=== PATIENT | male | born 1970 | race Caucasian/White ===

== ENCOUNTER 2016-09-03 19:44 | Emergency (ER) | payer SELFPAY ==
[2016-09-03 20:54] LABS: BASOPHIL 0.5 % (0-2); EOSINOPHIL 1.4 % (0-5); HCT 44.2 % (42.0-52.0); HGB 15.9 g/dl (13.2-18.0); MCH 31.9 pg (25.0-31.0); MCV 88.6 fL (78.0-100.0); MONOCYTE 6.3 % (0-12); MPV 10.1 fL (6.0-9.5); NEUTROPHIL 52.8 % (41-80); PLT 246 K/uL (150-400); RBC 4.99 M/uL (4.70-6.00); RDW 12.3 % (11.5-14.0); WBC 10.2 K/uL (4.0-10.5)
[2016-09-03 21:00] LABS: BILIRUBIN NEGATIVE (NEGATIVE); BLOOD NEGATIVE Ery/uL (NEGATIVE); CLARITY CLEAR (CLEAR); COLOR YELLOW (YELLOW); GLUCOSE (U) 3+ mg/dL (NORMAL); KETONE (U) NEGATIVE (NEGATIVE); LEUKOCYTES NEGATIVE Leu/uL (NEGATIVE); NITRITE NEGATIVE (NEGATIVE); PROTEIN NEGATIVE (NEGATIVE); SPECIFIC GRAVITY <=1.005 (1.001-1.030); UROBILINOGEN 0.2 mg/dL (0.2-1.0)
[2016-09-03 21:11] LABS: ALBUMIN 4.8 g/dL (3.5-5.0); BILIRUBIN - TOTAL 0.3 mg/dL (0.1-1.0); CREATININE 0.6 mg/dL (0.7-1.2); GLOBULIN (CALCULATION) 3.2 g/dL (2.2-4.2); POTASSIUM 3.6 mmol/L (3.5-5.1)
== END 2016-09-04 02:00 | disposition home or self-care (01) ==
LOC: FER 19:44
PROVIDERS: Emergency Medicine Emergency Medical Services
DX: K61.0 Anal abscess (principal); E86.9 Volume depletion, unspecified; E11.9 Type 2 diabetes mellitus without complications
CPT/HCPCS: 36415; 80053; 81003; 83605; 85025; 87040; J1170; J2270; J2405; Q9967